=== PATIENT | male | born 1965 | race Caucasian/White ===

== ENCOUNTER 2017-11-14 22:34 | Emergency (ER) | payer OTHER ==
[~2017-11-14] VITALS: Ht 170.2 cm; Wt 78.9 kg
[~2017-11-14 22:34] MED LIST: ADULT LOW DOSE81 M1 PO; ASPIRIN81 M1 PO; COLACE100 MG PO; FARXIGA5 MG PO; GLUCOPHAGE1000 MG PO; INVOKAMET 50-11 EACH PO; JANUVIA100 MG PO; LIPITOR40 MG PO; MEN'S ONE DAIL1 EACH PO; METFORMIN HCL500 M1 PO; METFORMIN HCL500 MG PO; MOBIC7.5 MG PO; PROTONIX40 MG PO; ROXICODONE5 MG PO; TORADOL10 MG PO; VICTOZA 2-0.6 MG/0.1 SC; ZESTRIL2.5 MG PO
[2017-11-15] MEDS ORDERED: FIORICET 50-301 EAC1 PO (00:09)
[2017-11-15] MEDS ORDERED: CLINDAMYCIN HC300 MG PO (00:09)
[2017-11-15] MEDS ORDERED: VALIUM5 MG PO (00:09)
[2017-11-15] MEDS ORDERED: NAPROSYN500 MG PO (00:09)
[2017-11-15 00:32] VITALS: BP 122/73
== END 2017-11-15 00:33 | disposition home or self-care (01) ==
LOC: EME 22:34
DX: S00.83XA Contusion of other part of head, initial encounter (principal); S01.512A Laceration without foreign body of oral cavity, initial encounter; S06.0X0A Concussion without loss of consciousness, initial encounter; S02.2XXA Fracture of nasal bones, initial encounter for closed fracture; S16.1XXA Strain of muscle, fascia and tendon at neck level, initial encounter; W01.198A Fall on same level from slipping, tripping and stumbling with subsequent striking against other object, initial encounter; Y99.0 Civilian activity done for income or pay; I10 Essential (primary) hypertension; E11.9 Type 2 diabetes mellitus without complications; I25.2 Old myocardial infarction; Z79.82 Long term (current) use of aspirin; Z88.0 Allergy status to penicillin
CPT/HCPCS: 70450; 70486; 99281; 99283